=== PATIENT | female | born 1955 | race African-American/Black ===

== ENCOUNTER 2018-03-04 13:13 | Inpatient (IN) ==
[2018-03-04] MEDS ORDERED: ACETAMINOPHEN 325 MG TABLET PO PRN (15:35)
[2018-03-04] MEDS ORDERED: ONDANSETRON 4 MG/2 ML VIAL IV PRN (15:35)
[2018-03-04] MEDS ORDERED: DEXTROSE 50% 25 GM/50 ML VIAL IV PRN ×2 (16:01→16:45)
[2018-03-04] MEDS ORDERED: GLUCAGON 1 MG VIAL IM PRN ×2 (16:01→16:45)
[2018-03-04] MEDS ORDERED: ALBUTEROL/IPRATROPIUM 3 ML NEB RESP TX PRN (16:21)
[2018-03-04 16:39] LABS: Basophils % 0.3 % (0.0-0.8); Eosinophils # 0.2 10*3/uL (0.0-0.87); Eosinophils % 2.4 % (0.00-10.9); Hematocrit 33.4 VOL% (35.7-47.0); Hemoglobin 10.7 GM/DL (12.0-16.0); Immature Granulocytes % 0.3 %; Immature Granulocytes Absolute 0.03 #; Lymphocytes # 2.6 10*3/uL (1.4-4.0); Lymphocytes % 28.9 % (21.3-54.2); Mean Corpuscular Hemoglobin 25 PG (27-34); Mean Corpuscular Volume 77.9 FL (87-102); Monocytes # 0.7 10*3/uL (0.11-0.8); Monocytes % 7.5 % (1.7-12.7); Neutrophils # 5.5 10*3/uL (1.4-7.4); Neutrophils % 60.6 % (38.7-73.9); Platelet Count 271 T/CUMM (130-400); Red Blood Count 4.29 MC/CUMM (3.8-5.5); Red Cell Distribution Width 16.5 % (9.3-17.3); White Blood Count 9.1 T/CUMM (4-12)
[2018-03-04] MEDS: guaiFENesin 200 MG/10 ML UDCUP PO PRN (16:43)
[2018-03-04 17:06] LABS: Calcium 8.4 MG/DL (8.5-10.1); Potassium 3.6 MMOL/L (3.5-5.1)
[2018-03-04 17:09] LABS: Albumin 2.9 G/DL (3.4-5.0); Bilirubin,Direct 0.17 MG/DL (0.0-0.20); Bilirubin,Indirect 0.6 MG/DL (0.0-1.0); Bilirubin,Total 0.8 MG/DL (0.2-1.0); Total Protein 6.1 G/DL (6.4-8.3)
[2018-03-04 17:15] LABS: Thyroid Stimulating Hormone 2.4 uIU/ml (0.358-3.74)
[2018-03-04] MEDS: FLUTICASONE/SALMETEROL 250-50 DISKUS 14 DOSE INH SCH (21:58)
[2018-03-04] MEDS: QUEtiapine 25 MG TABLET PO SCH (21:58)
[2018-03-04] MEDS: guaiFENesin/DM ER 600-30 MG TABLET PO PRN (21:58)
[2018-03-04] MEDS: ENOXAPARIN 40 MG/0.4 ML SYRINGE SUBCUT SCH (22:00)
[2018-03-04] MEDS: INSULIN LISPRO 100 UNIT/ML SUBCUT SCH (22:43)
[2018-03-05 00:01] LABS: Apearance,Urine CLEAR (Clear); Bilirubin,Urine Negative (Negative); Blood, Urine Negative (Negative); Glucose,Urine (UA) Negative (Negative); Ketones,Urine Negative (Negative); Mucus,Urine Occasional /LPF (Occasional); Nitrite,Urine Negative (Negative); Protein,Urine Negative; RBC,Urine <1 /HPF (0-4); Urine Color Straw (Yellow); Urine Specific Gravity 1.009 (1.001-1.035); Urine Urobilinogen < 2.0 EU/DL (0.2-1.0); WBC,Urine <1 /HPF (0-6)
[2018-03-05] MEDS: traZODone 50 MG TABLET PO PRN ×2 (00:41→21:05)
[2018-03-05 05:50] LABS: Basophils % 0.4 % (0.0-0.8); Eosinophils # 0.3 10*3/uL (0.0-0.87); Eosinophils % 3.5 % (0.00-10.9); Hemoglobin 10.8 GM/DL (12.0-16.0); Immature Granulocytes % 0.8 %; Immature Granulocytes Absolute 0.07 #; Lymphocytes # 4.2 10*3/uL (1.4-4.0); Lymphocytes % 45.4 % (21.3-54.2); Mean Corpuscular HGB Conc 31.8 GM/DL (32-36); Mean Corpuscular Hemoglobin 24 PG (27-34); Mean Corpuscular Volume 76.9 FL (87-102); Monocytes # 0.7 10*3/uL (0.11-0.8); Monocytes % 7.2 % (1.7-12.7); Neutrophils # 3.9 10*3/uL (1.4-7.4); Neutrophils % 42.7 % (38.7-73.9); Platelet Count 261 T/CUMM (130-400); Red Blood Count 4.42 MC/CUMM (3.8-5.5); Red Cell Distribution Width 16.4 % (9.3-17.3); White Blood Count 9.2 T/CUMM (4-12)
[2018-03-05 06:14] LABS: Calcium 8.5 MG/DL (8.5-10.1); Osmolality,Calculated 284.1 MOS/KG (273-304); Potassium 4.1 MMOL/L (3.5-5.1)
[2018-03-05 06:32] LABS: Albumin 2.7 G/DL (3.4-5.0); Bilirubin,Direct 0.25 MG/DL (0.0-0.20); Bilirubin,Indirect 0.7 MG/DL (0.0-1.0); Bilirubin,Total 0.9 MG/DL (0.2-1.0); Total Protein 6.7 G/DL (6.4-8.3)
[2018-03-05] MEDS ORDERED: NON-FORMULARY MEDICATION (Fluticasone/Vilanterol [Breo Ellipta 200-25 Mcg Inh] 1 PUFF) INH SCH (09:00)
[2018-03-05] MEDS: LOSARTAN/HCTZ 50-12.5 MG TABLET PO SCH (11:26)
[2018-03-05] MEDS: FUROSEMIDE 20 MG/2 ML VIAL IV SCH ×2 (11:27→17:22)
[2018-03-05] MEDS: METOPROLOL SUCCINATE XL 100 MG TABLET PO SCH (11:27)
[2018-03-05] MEDS: QUEtiapine 25 MG TABLET PO SCH ×2 (11:27→21:04)
[2018-03-05] MEDS: PANTOPRAZOLE 40 MG TABLET PO SCH (11:27)
[2018-03-05] MEDS: MELOXICAM 7.5 MG TABLET PO SCH (11:27)
[2018-03-05] MEDS: LORATADINE 10 MG TABLET PO SCH (11:31)
[2018-03-05] MEDS: FLUTICASONE/SALMETEROL 250-50 DISKUS 14 DOSE INH SCH ×2 (11:36→21:08)
[2018-03-05] MEDS: INSULIN LISPRO 100 UNIT/ML SUBCUT SCH ×3 (11:36→21:08)
[2018-03-05] MEDS: ENOXAPARIN 40 MG/0.4 ML SYRINGE SUBCUT SCH (21:06)
[2018-03-06 07:09] LABS: Basophils % 0.4 % (0.0-0.8); Eosinophils # 0.2 10*3/uL (0.0-0.87); Eosinophils % 2.6 % (0.00-10.9); Hematocrit 34.1 VOL% (35.7-47.0); Hemoglobin 10.5 GM/DL (12.0-16.0); Immature Granulocytes % 0.4 %; Immature Granulocytes Absolute 0.03 #; Lymphocytes # 3.4 10*3/uL (1.4-4.0); Lymphocytes % 45.6 % (21.3-54.2); Mean Corpuscular HGB Conc 30.8 GM/DL (32-36); Mean Corpuscular Hemoglobin 24 PG (27-34); Mean Corpuscular Volume 77.9 FL (87-102); Monocytes # 0.5 10*3/uL (0.11-0.8); Monocytes % 6.6 % (1.7-12.7); Neutrophils # 3.4 10*3/uL (1.4-7.4); Neutrophils % 44.4 % (38.7-73.9); Platelet Count 213 T/CUMM (130-400); Red Blood Count 4.38 MC/CUMM (3.8-5.5); Red Cell Distribution Width 16.5 % (9.3-17.3); White Blood Count 7.6 T/CUMM (4-12)
[2018-03-06 07:37] LABS: Calcium 8.7 MG/DL (8.5-10.1); Osmolality,Calculated 284.4 MOS/KG (273-304); Potassium 4.1 MMOL/L (3.5-5.1)
[2018-03-06] MEDS: PANTOPRAZOLE 40 MG TABLET PO SCH (10:40)
[2018-03-06] MEDS: LORATADINE 10 MG TABLET PO SCH (10:40)
[2018-03-06] MEDS: QUEtiapine 25 MG TABLET PO SCH ×2 (10:40→21:41)
[2018-03-06] MEDS: MELOXICAM 7.5 MG TABLET PO SCH (10:40)
[2018-03-06] MEDS: LOSARTAN/HCTZ 50-12.5 MG TABLET PO SCH (10:41)
[2018-03-06] MEDS: FLUTICASONE/SALMETEROL 250-50 DISKUS 14 DOSE INH SCH ×2 (10:43→22:05)
[2018-03-06] MEDS: SPIRONOLACTONE 25 MG TABLET PO SCH (10:43)
[2018-03-06] MEDS: FUROSEMIDE 20 MG/2 ML VIAL IV SCH ×2 (10:44→17:53)
[2018-03-06] MEDS: INSULIN LISPRO 100 UNIT/ML SUBCUT SCH ×3 (10:48→21:42)
[2018-03-06] MEDS: METOPROLOL SUCCINATE XL 100 MG TABLET PO SCH (10:54)
[2018-03-06] MEDS ORDERED: POTASSIUM CHLORIDE RIDER 10 MEQ in PREMIX 1 EACH IV PRN (16:46)
[2018-03-06] MEDS ORDERED: MAGNESIUM SULF RIDER 2 GM in PREMIX 1 EACH IV PRN (16:46)
[2018-03-06] MEDS: CARVEDILOL 25 MG TABLET PO SCH (17:53)
[2018-03-06] MEDS: traZODone 50 MG TABLET PO PRN (21:41)
[2018-03-06] MEDS: ENOXAPARIN 40 MG/0.4 ML SYRINGE SUBCUT SCH (21:42)
[2018-03-07] MEDS ORDERED: DIAZEPAM 5 MG TABLET PO ONE (06:00)
[2018-03-07] MEDS ORDERED: diphenhydrAMINE CAP 25 MG CAPSULE PO ONE (06:00)
[2018-03-07] MEDS ORDERED: ASPIRIN 325 MG TABLET PO ONE (06:00)
[2018-03-07 06:32] LABS: Calcium 8.3 MG/DL (8.5-10.1); Osmolality,Calculated 284.3 MOS/KG (273-304); Potassium 3.9 MMOL/L (3.5-5.1)
[2018-03-07] MEDS ORDERED: LIDOCAINE 1% 20 ML VIAL ONE (07:36)
[2018-03-07] MEDS: SODIUM CHLORIDE 0.9% 1,000 ML IV SCH (08:16)
[2018-03-07] MEDS: INSULIN LISPRO 100 UNIT/ML SUBCUT SCH ×4 (08:18→21:31)
[2018-03-07] MEDS ORDERED: fentaNYL 100 MCG/2 ML VIAL ONE (08:43)
[2018-03-07] MEDS ORDERED: MIDAZOLAM 2 MG/2 ML VIAL ONE (08:43)
[2018-03-07] MEDS: FUROSEMIDE 20 MG/2 ML VIAL IV SCH ×2 (10:55→16:40)
[2018-03-07] MEDS: PANTOPRAZOLE 40 MG TABLET PO SCH (12:38)
[2018-03-07] MEDS: LOSARTAN 50 MG TABLET PO SCH (12:38)
[2018-03-07] MEDS: CARVEDILOL 25 MG TABLET PO SCH ×2 (12:38→16:38)
[2018-03-07] MEDS: LORATADINE 10 MG TABLET PO SCH (12:38)
[2018-03-07] MEDS: SPIRONOLACTONE 25 MG TABLET PO SCH (12:38)
[2018-03-07] MEDS: QUEtiapine 25 MG TABLET PO SCH ×2 (12:39→21:22)
[2018-03-07] MEDS: FLUTICASONE/SALMETEROL 250-50 DISKUS 14 DOSE INH SCH ×3 (12:40→21:43)
[2018-03-07] MEDS: DOCUSATE SODIUM 100 MG CAPSULE PO PRN ×2 (16:38→21:22)
[2018-03-07] MEDS: traZODone 50 MG TABLET PO PRN (21:22)
[2018-03-07] MEDS: guaiFENesin/DM ER 600-30 MG TABLET PO PRN (21:22)
[2018-03-07] MEDS: ATORVASTATIN 40 MG TABLET PO SCH (21:23)
[2018-03-07] MEDS: ENOXAPARIN 40 MG/0.4 ML SYRINGE SUBCUT SCH (21:31)
[2018-03-08 07:00] LABS: Calcium 8.6 MG/DL (8.5-10.1); Osmolality,Calculated 282.5 MOS/KG (273-304); Potassium 3.9 MMOL/L (3.5-5.1); Risk Ratio 3.11; VLDL CHOLESTEROL 20.8 MG/DL
[2018-03-08] MEDS: INSULIN LISPRO 100 UNIT/ML SUBCUT SCH ×4 (07:51→23:07)
[2018-03-08] MEDS: POLYETHYLENE GLYCOL POWDER 17 GM PACK PO SCH (08:39)
[2018-03-08] MEDS: ASPIRIN EC 81 MG TABLET PO SCH (08:40)
[2018-03-08] MEDS: QUEtiapine 25 MG TABLET PO SCH ×2 (08:40→23:06)
[2018-03-08] MEDS: SPIRONOLACTONE 25 MG TABLET PO SCH (08:40)
[2018-03-08] MEDS: DOCUSATE SODIUM 100 MG CAPSULE PO PRN ×2 (08:40→23:05)
[2018-03-08] MEDS: LOSARTAN 50 MG TABLET PO SCH (08:40)
[2018-03-08] MEDS: FUROSEMIDE 20 MG TABLET PO SCH ×2 (08:40→16:57)
[2018-03-08] MEDS: LORATADINE 10 MG TABLET PO SCH (08:40)
[2018-03-08] MEDS: PANTOPRAZOLE 40 MG TABLET PO SCH (08:40)
[2018-03-08] MEDS: CARVEDILOL 25 MG TABLET PO SCH ×2 (08:40→17:33)
[2018-03-08] MEDS: FLUTICASONE/SALMETEROL 250-50 DISKUS 14 DOSE INH SCH ×2 (09:08→23:15)
[2018-03-08] MEDS: SODIUM CHLORIDE 0.9% 1,000 ML IV SCH (10:41)
[2018-03-08] MEDS ORDERED: MAGNESIUM HYDROXIDE SUSP 30 ML UDCUP PO ONE (11:25)
[2018-03-08] MEDS: guaiFENesin 200 MG/10 ML UDCUP PO PRN (16:57)
[2018-03-08] MEDS: ATORVASTATIN 40 MG TABLET PO SCH (23:05)
[2018-03-08] MEDS: traZODone 50 MG TABLET PO PRN (23:06)
[2018-03-08] MEDS: guaiFENesin/DM ER 600-30 MG TABLET PO PRN (23:06)
[2018-03-08] MEDS: ENOXAPARIN 40 MG/0.4 ML SYRINGE SUBCUT SCH (23:07)
[2018-03-09 06:12] LABS: Basophils % 0.8 % (0.0-0.8); Eosinophils # 0.1 10*3/uL (0.0-0.87); Eosinophils % 2.5 % (0.00-10.9); Hematocrit 33.6 VOL% (35.7-47.0); Hemoglobin 10.7 GM/DL (12.0-16.0); Immature Granulocytes % 0.2 %; Immature Granulocytes Absolute 0.01 #; Lymphocytes # 2.3 10*3/uL (1.4-4.0); Lymphocytes % 45.3 % (21.3-54.2); Mean Corpuscular HGB Conc 31.8 GM/DL (32-36); Mean Corpuscular Hemoglobin 25 PG (27-34); Mean Corpuscular Volume 78.1 FL (87-102); Monocytes # 0.5 10*3/uL (0.11-0.8); Monocytes % 9.9 % (1.7-12.7); Neutrophils # 2.1 10*3/uL (1.4-7.4); Neutrophils % 41.3 % (38.7-73.9); Platelet Count 221 T/CUMM (130-400); Red Cell Distribution Width 16.5 % (9.3-17.3); White Blood Count 5.1 T/CUMM (4-12)
[2018-03-09 06:33] LABS: Calcium 8.5 MG/DL (8.5-10.1); Osmolality,Calculated 285.3 MOS/KG (273-304); Potassium 4.6 MMOL/L (3.5-5.1)
[2018-03-09] MEDS: INSULIN LISPRO 100 UNIT/ML SUBCUT SCH ×2 (07:47→13:16)
[2018-03-09] MEDS: CARVEDILOL 25 MG TABLET PO SCH (08:23)
[2018-03-09] MEDS: QUEtiapine 25 MG TABLET PO SCH (08:23)
[2018-03-09] MEDS: LORATADINE 10 MG TABLET PO SCH (08:23)
[2018-03-09] MEDS: LOSARTAN 50 MG TABLET PO SCH (08:23)
[2018-03-09] MEDS: FUROSEMIDE 20 MG TABLET PO SCH (08:24)
[2018-03-09] MEDS: ASPIRIN EC 81 MG TABLET PO SCH (08:24)
[2018-03-09] MEDS: PANTOPRAZOLE 40 MG TABLET PO SCH (08:24)
[2018-03-09] MEDS: SPIRONOLACTONE 25 MG TABLET PO SCH (08:24)
[2018-03-09] MEDS: POLYETHYLENE GLYCOL POWDER 17 GM PACK PO SCH (08:25)
[2018-03-09] MEDS: FLUTICASONE/SALMETEROL 250-50 DISKUS 14 DOSE INH SCH (08:29)
[2018-03-09] MEDS ORDERED: MAGNESIUM HYDROXIDE SUSP 30 ML UDCUP PO ONE (11:27)
[2018-03-09 11:47] VITALS: BP 113/66
== END 2018-03-09 15:40 | disposition home or self-care (01) | DRG 287 ==
LOC: N.2E 14:18 → SUATTDRO 14:18
PROVIDERS: ADMIT Internal Medicine; ATTEND Internal Medicine
PROC: CLCCHCL (ICD-10-PCS; 2018-03-07 09:15)

== ENCOUNTER 2019-04-10 06:07 | Inpatient (IN) ==
[2019-04-10 10:25] LABS: Basophils # 0.1 10*3/uL (0.0-0.2); Basophils % 0.5 % (0.0-0.8); Eosinophils # 0.1 10*3/uL (0.0-0.87); Eosinophils % 1.5 % (0.00-10.9); Hematocrit 35.3 VOL% (35.7-47.0); Hemoglobin 11.4 GM/DL (12.0-16.0); Immature Granulocytes % 0.2 %; Immature Granulocytes Absolute 0.02 #; Lymphocytes # 2.6 10*3/uL (1.4-4.0); Lymphocytes % 27.9 % (21.3-54.2); Mean Corpuscular HGB Conc 32.3 GM/DL (32-36); Mean Corpuscular Volume 77.4 FL (87-102); Mean Platelet Volume 11.7 FL (9.6-12.0); Monocytes % 6.9 % (1.7-12.7); Platelet Count 307 T/CUMM (130-400); Red Blood Count 4.56 MC/CUMM (3.8-5.5); Red Cell Distribution Width 15.3 % (9.3-17.3); White Blood Count 9.3 T/CUMM (4-12)
[2019-04-10 10:47] LABS: Albumin 3.1 G/DL (3.4-5.0); Calcium 8.7 MG/DL (8.5-10.1); Osmolality,Calculated 288.8 MOS/KG (273-304); Total Protein 7.1 G/DL (6.4-8.3)
[2019-04-10] MEDS ORDERED: LACTULOSE 20 GM/30 ML UDCUP PO PRN (11:23)
[2019-04-10] MEDS ORDERED: ONDANSETRON 4 MG/2 ML VIAL IV PRN (11:23)
[2019-04-10] MEDS ORDERED: ACETAMINOPHEN 325 MG TABLET PO PRN (11:23)
[2019-04-10] MEDS ORDERED: FUROSEMIDE 40 MG/4 ML VIAL IV SCH ×2 (11:30→21:00)
[2019-04-10] MEDS: ENOXAPARIN 40 MG/0.4 ML SYRINGE SUBCUT SCH (11:53)
[2019-04-10] MEDS ORDERED: CYANOCOBALAMIN 1000 MCG/1 ML VIAL SUBCUT SCH (12:00)
[2019-04-10] MEDS ORDERED: ALBUTEROL 2.5 MG/3 ML NEB RESP TX PRN (12:01)
[2019-04-10] MEDS ORDERED: GLUCAGON 1 MG VIAL IM PRN (12:03)
[2019-04-10] MEDS ORDERED: DEXTROSE 10% 25 GM/250 ML BAG IV PRN (12:03)
[2019-04-10 12:28] LABS: Risk Ratio 4.12; Thyroid Stimulating Hormone 1.85 uIU/ml (0.358-3.74); VLDL CHOLESTEROL 19.2 MG/DL
[2019-04-10 12:33] LABS: Apearance,Urine CLEAR (Clear); Bilirubin,Urine Negative (Negative); Blood, Urine Negative (Negative); Glucose,Urine (UA) Negative (Negative); Ketones,Urine Negative (Negative); Nitrite,Urine Negative (Negative); Protein,Urine Negative; RBC,Urine 1 /HPF (0-4); Squamous Epithelial Cell,Urine Occasional /HPF (0-10); Urine Color Straw (Yellow); Urine Urobilinogen < 2.0 EU/DL (0.2-1.0); WBC,Urine 2 /HPF (0-6)
[2019-04-10] MEDS: ALBUTEROL/IPRATROPIUM 3 ML NEB RESP TX SCH ×2 (14:26→19:56)
[2019-04-10] MEDS: INSULIN LISPRO 100 UNIT/ML SUBCUT SCH ×2 (16:09→21:45)
[2019-04-10] MEDS: carvediloL 3.125 MG TABLET PO SCH ×2 (16:10→21:42)
[2019-04-10] MEDS: FUROSEMIDE 40 MG/4 ML VIAL IV SCH (16:10)
[2019-04-10] MEDS ORDERED: CALCIUM CARBONATE CHEW 500 MG TABLET PO PRN (18:12)
[2019-04-10] MEDS ORDERED: RANITIDINE 150 MG TABLET PO SCH (21:00)
[2019-04-10] MEDS: FLUTICASONE/SALMETEROL 250-50 DISKUS 14 DOSE INH SCH (21:42)
[2019-04-10] MEDS: QUEtiapine 25 MG TABLET PO SCH (21:42)
[2019-04-11] MEDS: ALBUTEROL/IPRATROPIUM 3 ML NEB RESP TX SCH ×3 (01:37→14:05)
[2019-04-11 05:33] LABS: Basophils # 0.1 10*3/uL (0.0-0.2); Basophils % 0.7 % (0.0-0.8); Eosinophils # 0.2 10*3/uL (0.0-0.87); Eosinophils % 2.8 % (0.00-10.9); Hematocrit 35.4 VOL% (35.7-47.0); Hemoglobin 11.1 GM/DL (12.0-16.0); Immature Granulocytes % 0.5 %; Immature Granulocytes Absolute 0.04 #; Lymphocytes # 2.4 10*3/uL (1.4-4.0); Lymphocytes % 28.2 % (21.3-54.2); Mean Corpuscular HGB Conc 31.4 GM/DL (32-36); Mean Corpuscular Volume 78.1 FL (87-102); Mean Platelet Volume 12.1 FL (9.6-12.0); Monocytes % 8.1 % (1.7-12.7); Neutrophils % 59.7 % (38.7-73.9); Platelet Count 277 T/CUMM (130-400); Red Blood Count 4.53 MC/CUMM (3.8-5.5); Red Cell Distribution Width 15.4 % (9.3-17.3); White Blood Count 8.7 T/CUMM (4-12)
[2019-04-11 05:44] LABS: Calcium 8.6 MG/DL (8.5-10.1); Osmolality,Calculated 291.8 MOS/KG (273-304)
[2019-04-11] MEDS: INSULIN LISPRO 100 UNIT/ML SUBCUT SCH ×2 (07:40→12:25)
[2019-04-11] MEDS: FLUTICASONE/SALMETEROL 250-50 DISKUS 14 DOSE INH SCH (08:17)
[2019-04-11] MEDS: QUEtiapine 25 MG TABLET PO SCH (08:18)
[2019-04-11] MEDS: FUROSEMIDE 40 MG/4 ML VIAL IV SCH (08:18)
[2019-04-11] MEDS: carvediloL 3.125 MG TABLET PO SCH (08:20)
[2019-04-11] MEDS ORDERED: LORATADINE 10 MG TABLET PO SCH (09:00)
[2019-04-11] MEDS ORDERED: Fluticasone Furoate-Vilanterol [Breo Ellipta] 1 PUFF INH SCH (09:00)
[2019-04-11] MEDS ORDERED: PANTOPRAZOLE 40 MG TABLET PO SCH (09:00)
[2019-04-11] MEDS ORDERED: ASPIRIN EC 81 MG TABLET PO SCH (09:00)
[2019-04-11] MEDS ORDERED: lisinopriL 2.5 MG TABLET PO SCH (09:00)
[2019-04-11 11:55] VITALS: BP 126/71
[2019-04-11] MEDS: ENOXAPARIN 40 MG/0.4 ML SYRINGE SUBCUT SCH (12:27)
== END 2019-04-11 14:04 | disposition home health service (06) | DRG 293 ==
LOC: SUATTDRO 08:21 → N.2E 08:21
PROVIDERS: ADMIT Internal Medicine; ATTEND Hospitalist

== ENCOUNTER 2019-12-21 15:54 | Inpatient (IN) ==
[2019-12-21] MEDS ORDERED: GLUCAGON 1 MG VIAL IM PRN (17:08)
[2019-12-21] MEDS ORDERED: ONDANSETRON 4 MG/2 ML VIAL IV PRN (17:08)
[2019-12-21] MEDS ORDERED: DEXTROSE 50% 25 GM/50 ML VIAL IV PRN (17:08)
[2019-12-21] MEDS ORDERED: ACETAMINOPHEN 325 MG TABLET PO PRN (17:08)
[2019-12-21] MEDS ORDERED: traMADol 50 MG TABLET PO PRN (17:08)
[2019-12-21 18:06] LABS: Basophils # 0.1 10*3/uL (0.0-0.2); Basophils % 0.7 % (0.0-0.8); Eosinophils # 0.2 10*3/uL (0.0-0.87); Eosinophils % 2.1 % (0.00-10.9); Hematocrit 36.1 VOL% (35.7-47.0); Hemoglobin 11.4 GM/DL (12.0-16.0); Immature Granulocytes % 0.4 %; Immature Granulocytes Absolute 0.04 #; Lymphocytes # 3.2 10*3/uL (1.4-4.0); Mean Corpuscular HGB Conc 31.6 GM/DL (32-36); Mean Corpuscular Volume 83.4 FL (87-102); Mean Platelet Volume 11.1 FL (9.6-12.0); Neutrophils % 52.8 % (38.7-73.9); Platelet Count 253 T/CUMM (130-400); Red Blood Count 4.33 MC/CUMM (3.8-5.5); Red Cell Distribution Width 13.6 % (9.3-17.3)
[2019-12-21 18:48] LABS: Albumin 3.3 G/DL (3.4-5.0); Bilirubin,Total 0.4 MG/DL (0.2-1.0); Calcium 9.8 MG/DL (8.5-10.1); Osmolality,Calculated 278.8 MOS/KG (273-304); Total Protein 7.5 G/DL (6.4-8.3)
[2019-12-21] MEDS: ALBUTEROL/IPRATROPIUM 3 ML NEB RESP TX SCH (20:08)
[2019-12-21] MEDS: SODIUM CHLORIDE 0.9% 1,000 ML IV SCH (20:15)
[2019-12-21] MEDS ORDERED: HALOPERIDOL 5 MG TABLET PO SCH (21:00)
[2019-12-21 22:06] LABS: Apearance,Urine CLEAR (Clear); Bilirubin,Urine Negative (Negative); Blood, Urine Negative (Negative); Glucose,Urine (UA) Negative (Negative); Hyaline Casts,Urine 34 /LPF (0-3); Ketones,Urine Negative (Negative); Mucus,Urine Occasional /LPF (Occasional); Nitrite,Urine Negative (Negative); Protein,Urine Negative; RBC,Urine <1 /HPF (0-4); Squamous Epithelial Cell,Urine Occasional /HPF (0-10); Urine Color Yellow (Yellow); Urine Specific Gravity 1.012 (1.001-1.035); Urine Urobilinogen < 2.0 EU/DL (0.2-1.0); WBC,Urine 2 /HPF (0-6)
[2019-12-21] MEDS: cefTRIAXone 500 MG in SYRINGE 1 EACH IV SCH (23:50)
[2019-12-21] MEDS: ENOXAPARIN 30 MG/0.3 ML SYRINGE SUBCUT SCH (23:54)
[2019-12-21] MEDS: DESITIN 4OZ/NYSTATIN 15 GRAM MIXTURE PASTE TOP SCH (23:55)
[2019-12-22] MEDS: ROSUVASTATIN 10 MG TABLET PO SCH ×2 (01:10→21:06)
[2019-12-22] MEDS: DOCUSATE SODIUM 100 MG CAPSULE PO SCH ×3 (01:10→21:07)
[2019-12-22] MEDS: carvediloL 6.25 MG TABLET PO SCH ×3 (01:10→21:06)
[2019-12-22] MEDS: MEGESTROL 40 MG TABLET PO SCH ×3 (01:10→21:07)
[2019-12-22] MEDS: FAMOTIDINE 20 MG TABLET PO SCH ×3 (01:11→21:07)
[2019-12-22] MEDS: HALOPERIDOL 1 MG TABLET PO SCH ×2 (01:11→21:06)
[2019-12-22] MEDS: ALBUTEROL/IPRATROPIUM 3 ML NEB RESP TX SCH ×4 (02:18→19:32)
[2019-12-22 06:18] LABS: Calcium 9.5 MG/DL (8.5-10.1); Osmolality,Calculated 282.4 MOS/KG (273-304)
[2019-12-22 06:18] LABS: Albumin 2.7 G/DL (3.4-5.0); Bilirubin,Direct 0.1 MG/DL (0.0-0.20); Bilirubin,Indirect 0.8 MG/DL (0.0-1.0); Bilirubin,Total 0.9 MG/DL (0.2-1.0); Total Protein 6.5 G/DL (6.4-8.3)
[2019-12-22] MEDS: DESITIN 4OZ/NYSTATIN 15 GRAM MIXTURE PASTE TOP SCH ×2 (08:57→21:07)
[2019-12-22] MEDS: ASPIRIN EC 81 MG TABLET PO SCH (08:57)
[2019-12-22] MEDS: SODIUM CHLORIDE 0.9% 1,000 ML IV SCH ×2 (08:58→21:25)
[2019-12-22] MEDS: INSULIN REGULAR 100 UNIT/ML SUBCUT SCH ×2 (09:56→16:53)
[2019-12-22] MEDS: ENOXAPARIN 30 MG/0.3 ML SYRINGE SUBCUT SCH (21:06)
[2019-12-22] MEDS: cefTRIAXone 500 MG in SYRINGE 1 EACH IV SCH (21:07)
[2019-12-23] MEDS: ALBUTEROL/IPRATROPIUM 3 ML NEB RESP TX SCH ×4 (00:16→20:35)
[2019-12-23] MEDS: SODIUM CHLORIDE 0.9% 1,000 ML IV SCH ×2 (05:12→18:01)
[2019-12-23 05:49] LABS: Basophils # 0.1 10*3/uL (0.0-0.2); Basophils % 0.7 % (0.0-0.8); Eosinophils # 0.2 10*3/uL (0.0-0.87); Eosinophils % 2.7 % (0.00-10.9); Hematocrit 27.6 VOL% (35.7-47.0); Immature Granulocytes % 0.3 %; Immature Granulocytes Absolute 0.02 #; Lymphocytes # 2.8 10*3/uL (1.4-4.0); Lymphocytes % 36.2 % (21.3-54.2); Mean Corpuscular HGB Conc 32.6 GM/DL (32-36); Mean Corpuscular Volume 81.9 FL (87-102); Mean Platelet Volume 10.6 FL (9.6-12.0); Neutrophils % 51.1 % (38.7-73.9); Platelet Count 221 T/CUMM (130-400); Red Blood Count 3.37 MC/CUMM (3.8-5.5); Red Cell Distribution Width 13.6 % (9.3-17.3); White Blood Count 7.7 T/CUMM (4-12)
[2019-12-23 06:28] LABS: Albumin 2.4 G/DL (3.4-5.0); Bilirubin,Total 0.6 MG/DL (0.2-1.0); Calcium 9.1 MG/DL (8.5-10.1); Osmolality,Calculated 282.3 MOS/KG (273-304); Total Protein 5.8 G/DL (6.4-8.3)
[2019-12-23] MEDS: INSULIN REGULAR 100 UNIT/ML SUBCUT SCH ×2 (07:57→16:03)
[2019-12-23] MEDS: FAMOTIDINE 20 MG TABLET PO SCH ×2 (10:55→21:21)
[2019-12-23] MEDS: MEGESTROL 40 MG TABLET PO SCH ×2 (10:55→21:22)
[2019-12-23] MEDS: DOCUSATE SODIUM 100 MG CAPSULE PO SCH ×2 (10:55→21:21)
[2019-12-23] MEDS: ASPIRIN EC 81 MG TABLET PO SCH (10:55)
[2019-12-23] MEDS: DESITIN 4OZ/NYSTATIN 15 GRAM MIXTURE PASTE TOP SCH ×2 (10:56→21:22)
[2019-12-23] MEDS: carvediloL 6.25 MG TABLET PO SCH ×2 (10:56→22:46)
[2019-12-23] MEDS: CARBIDOPA/LEVODOPA 25-100 MG TABLET PO SCH ×2 (18:01→21:21)
[2019-12-23] MEDS: ENOXAPARIN 30 MG/0.3 ML SYRINGE SUBCUT SCH (21:21)
[2019-12-23] MEDS: ROSUVASTATIN 10 MG TABLET PO SCH (21:21)
[2019-12-23] MEDS: HALOPERIDOL 1 MG TABLET PO SCH (21:21)
[2019-12-23] MEDS: cefTRIAXone 500 MG in SYRINGE 1 EACH IV SCH (21:22)
[2019-12-24] MEDS: ALBUTEROL/IPRATROPIUM 3 ML NEB RESP TX SCH ×3 (00:27→13:30)
[2019-12-24] MEDS: SODIUM CHLORIDE 0.9% 1,000 ML IV SCH (04:15)
[2019-12-24 05:54] LABS: Basophils % 0.5 % (0.0-0.8); Eosinophils # 0.2 10*3/uL (0.0-0.87); Eosinophils % 3.1 % (0.00-10.9); Immature Granulocytes % 0.3 %; Immature Granulocytes Absolute 0.02 #; Lymphocytes # 2.7 10*3/uL (1.4-4.0); Lymphocytes % 36.1 % (21.3-54.2); Mean Corpuscular HGB Conc 32.1 GM/DL (32-36); Mean Corpuscular Volume 81.9 FL (87-102); Mean Platelet Volume 11.1 FL (9.6-12.0); Monocytes % 9.1 % (1.7-12.7); Neutrophils % 50.9 % (38.7-73.9); Platelet Count 215 T/CUMM (130-400); Red Blood Count 3.42 MC/CUMM (3.8-5.5); Red Cell Distribution Width 13.4 % (9.3-17.3); White Blood Count 7.5 T/CUMM (4-12)
[2019-12-24 06:06] LABS: Albumin 2.2 G/DL (3.4-5.0); Bilirubin,Total 0.8 MG/DL (0.2-1.0); Calcium 8.6 MG/DL (8.5-10.1); Total Protein 5.8 G/DL (6.4-8.3)
[2019-12-24] MEDS: INSULIN REGULAR 100 UNIT/ML SUBCUT SCH (07:41)
[2019-12-24] MEDS: DESITIN 4OZ/NYSTATIN 15 GRAM MIXTURE PASTE TOP SCH (10:38)
[2019-12-24] MEDS: carvediloL 6.25 MG TABLET PO SCH (10:38)
[2019-12-24] MEDS: MEGESTROL 40 MG TABLET PO SCH (10:38)
[2019-12-24] MEDS: CARBIDOPA/LEVODOPA 25-100 MG TABLET PO SCH (10:38)
[2019-12-24] MEDS: ASPIRIN EC 81 MG TABLET PO SCH (10:38)
[2019-12-24] MEDS: DOCUSATE SODIUM 100 MG CAPSULE PO SCH (10:38)
[2019-12-24] MEDS: FAMOTIDINE 20 MG TABLET PO SCH (10:38)
[2019-12-24 11:51] VITALS: BP 154/69
== END 2019-12-24 15:15 | DRG 556 ==
LOC: N.3E 17:06
PROVIDERS: ADMIT Internal Medicine; ATTEND Internal Medicine